=== PATIENT | male | born 2005 | race African-American/Black ===

== ENCOUNTER 2025-02-14 20:33 | Emergency (ER) | payer MEDICAID, OTHER ==
[~2025-02-14] VITALS: Ht 180.3 cm; Wt 90.9 kg
[2025-02-14 21:15] VITALS: BP 125/60; PULSE 86; RESP 12; O2SAT 98
[2025-02-14] MEDS ORDERED: LIDOCAINE 2%HCL (LOCAL ANESTH.) INJ 20ML MDV ID ONE (21:15)
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
[2025-02-14 21:34] VITALS: TEMP 99.1
[2025-02-14] MEDS: TETANUS-DIPTH-ACEL PERTUSSIS 0.5ML SYR Tdap IM ONE (21:34)
[2025-02-14] MEDS: ACETAMINOPHEN 500 MG TAB or CAP PO ONE (21:34)
[2025-02-14 21:44] LABS: Hematocrit 46.9 % (41.0-53.0); Hemoglobin 15.8 g/dL (13.5-17.5); Mean Corpuscular Hemoglobin 29.9 pg (28.0-32.0); Mean Corpuscular Volume 88.5 fL (80.0-100.0); Nucleated Red Blood Cells % 0.2 %
[2025-02-14 21:52] LABS: Alanine Aminotransferase 21 U/L (7-40); Albumin 4.7 g/dL (3.2-4.8); Alkaline Phosphatase 105 U/L (46-116); Anion Gap 10 (5-15); BUN/Creatinine Ratio 5.8 (10.0-20.0); Calcium 9.5 mg/dL (8.7-10.4); Carbon Dioxide 25 mmol/L (20-31); Sodium 143 mmol/L (136-145); Total Protein 7.1 g/dL (5.7-8.2)
[2025-02-14 21:53] LABS: Bilirubin, Total 0.7 mg/dL (0.2-1.0)
[2025-02-14 22:03] LABS: Blood Urea Nitrogen 6 mg/dL (9-23); Chloride 108 mmol/L (98-107); Glucose 146 mg/dL (74-106); Potassium 3.5 mmol/L (3.5-5.1)
--- NOTE | 2025-02-14 22:27 | DVH ---
CLINICAL INDICATION: Right hand injury, pain TECHNIQUE: XYXY R HAND 3 VIEW XRAY COMPARISON: None FINDINGS/IMPRESSION: : There is no evidence of acute fracture or dislocation. Generalized soft tissue swelling.
[2025-02-14] MEDS ORDERED: AUG875T PO (23:03)
[2025-02-15] MEDS ORDERED: RALT400T PO (01:18)
[2025-02-15] MEDS ORDERED: EMTRTAB7 PO (01:18)
[2025-02-15] MEDS ORDERED: BACI-5 EX (01:57)
== END 2025-02-14 22:25 | disposition left against medical advice (07) ==
LOC: ER 20:33 → EDBD 20:33 → ER 22:25
DX: T14.8XXA Other injury of unspecified body region, initial encounter (principal); S61.451A Open bite of right hand, initial encounter; F17.200 Nicotine dependence, unspecified, uncomplicated; J45.909 Unspecified asthma, uncomplicated; Y04.1XXA Assault by human bite, initial encounter; Y93.89 Activity, other specified; Y92.89 Other specified places as the place of occurrence of the external cause; Y99.8 Other external cause status
CPT/HCPCS: 36415; 73130; 80053; 85025; 86703; 90471; 90715

== ENCOUNTER 2025-02-14 22:47 | Emergency (ER) | payer MEDICAID ==
[~2025-02-14] VITALS: Ht 172.7 cm; Wt 80.9 kg
[2025-02-14] MEDS ORDERED: AUG875T PO (23:03)
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
[2025-02-15] MEDS: hydrOXYzine 25 MG TAB or CAP PO ONE (00:16)
[2025-02-15 01:00] VITALS: BP 142/88; PULSE 86; RESP 18; TEMP 98.2; O2SAT 98
[2025-02-15] MEDS ORDERED: RALT400T PO (01:18)
[2025-02-15] MEDS ORDERED: EMTRTAB7 PO (01:18)
[2025-02-15] MEDS ORDERED: BACI-5 EX (01:57)
== END 2025-02-15 02:02 | disposition home or self-care (01) ==
LOC: ER 22:47
DX: S01.311A Laceration without foreign body of right ear, initial encounter (principal); S08 Avulsion and traumatic amputation of part of head; S69.90XA Unspecified injury of unspecified wrist, hand and finger(s), initial encounter; J45.909 Unspecified asthma, uncomplicated; Z79.899 Other long term (current) drug therapy; Y04.1XXA Assault by human bite, initial encounter; Y93.89 Activity, other specified; Y92.89 Other specified places as the place of occurrence of the external cause; Y99.8 Other external cause status
CPT/HCPCS: 12014; 99283; A4649; 12053